=== PATIENT | male | born 1945 | race Caucasian/White ===

== ENCOUNTER → 2019-03-15 | Outpatient (CLI) | payer BC ==
[~2019-03-15] MED LIST: ASPIRIN325 PO; ATORVASTATIN CA40 MG PO; AZOR 5-40 MG T1 EACH PO; BENICAR20 MG PO; BYSTOLIC 5 MG5 M1 PO; DILTIAZEM 24HR240 MG PO; PERCOCET
== END ==
LOC: SJCVC 10:21 → CAT 10:21
DX: Z13.6 Encounter for screening for cardiovascular disorders (principal); I25.10 Atherosclerotic heart disease of native coronary artery without angina pectoris; E78.00 Pure hypercholesterolemia, unspecified

== ENCOUNTER → 2020-07-10 | Outpatient (CLI) | payer OTHER | LOC: SJCVC 14:21 | PROVIDERS: ATTEND Internal Medicine Cardiovascular Disease | DX: I25.10 Atherosclerotic heart disease of native coronary artery without angina pectoris (principal); I10 Essential (primary) hypertension; I77.9 Disorder of arteries and arterioles, unspecified; E78.00 Pure hypercholesterolemia, unspecified; M19.90 Unspecified osteoarthritis, unspecified site; E78.5 Hyperlipidemia, unspecified; F17.210 Nicotine dependence, cigarettes, uncomplicated; Z79.82 Long term (current) use of aspirin; Z79.899 Other long term (current) drug therapy; Z82.49 Family history of ischemic heart disease and other diseases of the circulatory system ==

== ENCOUNTER → 2021-01-02 | Outpatient (CLI) | payer OTHER | END | disposition home or self-care (01) | LOC: RAD 10:02 | PROVIDERS: ATTEND Nurse Practitioner | DX: M25.852 Other specified joint disorders, left hip (principal); M25.552 Pain in left hip ==

== ENCOUNTER → 2021-02-27 | Outpatient (CLI) | payer OTHER | LOC: SJCVCIMAG 09:38 → SJCVC 09:38 | PROVIDERS: ATTEND Internal Medicine Cardiovascular Disease | DX: I34.0 Nonrheumatic mitral (valve) insufficiency (principal); I47.1 Supraventricular tachycardia; I10 Essential (primary) hypertension; E78.00 Pure hypercholesterolemia, unspecified; I77.9 Disorder of arteries and arterioles, unspecified; I25.119 Atherosclerotic heart disease of native coronary artery with unspecified angina pectoris; R06.02 Shortness of breath; R00.2 Palpitations; F17.210 Nicotine dependence, cigarettes, uncomplicated; Z72.89 Other problems related to lifestyle; Z79.82 Long term (current) use of aspirin; Z79.899 Other long term (current) drug therapy; Z82.49 Family history of ischemic heart disease and other diseases of the circulatory system ==

== ENCOUNTER → 2021-03-29 | Outpatient (CLI) | payer OTHER ==
[~2021-03-29] VITALS: Ht 177.8 cm; Wt 90.7 kg
[~2021-03-29] MED LIST changes: +AVAPRO300 MG PO; +ZETIA10 MG PO
--- NOTE | ~2021-03-29 | P ---
[facility] [place] [address] PROCEDURE REPORT Name: SHO HARDING Room #: 150-3 [facility]#: [id number] Admission: 03/29/21 Attend Phys: Madhu Thompson MD Discharge: Date of : 47 Report #: [id number] THIS REPORT FOR: cc: Seferino Arrieta MD, Neal A. MD Couchonnal, Luis F. MD ~ DATE OF SERVICE: 03/29/2021 SVT ABLATION PREOPERATIVE DIAGNOSIS: Supraventricular tachycardia. 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 PROCEDURES PERFORMED: 1. SVT ablation, CPT code 19780. 2. Program stimulation pacing after IV drug infusion, CPT code 35036. DESCRIPTION OF PROCEDURE: The patient was brought to the EP laboratory in fasting and sedated state, prepped and draped in a standard fashion. I obtained access to the right femoral vein x 3, placing an 8, 6 and 7-Upper Sorbian short sheath. Under fluoroscopy, 3 quadripolar catheters were placed at the HRA, His and RV position and a decapolar catheter placed in the coronary sinus for left atrial pacing and recording. At baseline, the patient was in sinus rhythm, sinus cycle length of 625 milliseconds, OK interval 270 milliseconds, QRS duration 76 milliseconds, QT interval 385 milliseconds, AH interval 150 milliseconds, HV interval 50 milliseconds. Atrial burst pacing was performed and SVT was induced pacing at 350 milliseconds. The tachycardia cycle length was 400 milliseconds with a septal VA time of 35 milliseconds and a ventricular entrainment demonstrated a VAHV response consistent with typical AV nela reentrant tachycardia. AV block was noted to be less than 350 milliseconds. AV nela ERP was noted to be at a less than 300 milliseconds at a [address] cycle length. Next, ventricular pacing was performed. VA block was noted at 310 milliseconds. Ventricular ERP was noted at 240 milliseconds at a [address] cycle length. 3D MAPPING AND ABLATION: The patient was prepped for SVT ablation. I used a 4 mm ablation catheter via an SR0 sheath and I created a 3D geometry of the right atrium. A total of 4 ablation lesions were performed with good junctional responses and no heart block. POST-ABLATION FINDINGS: The patient underwent repeat post-ablation EP study. AV block was noted at 380 milliseconds. Atrial ERP was noted at 210 milliseconds at a [address] cycle length and AV block was noted at 270 milliseconds. Isoproterenol infusion was started at 2 mcg per minute. Atrial ERP was noted at 210 milliseconds at [address] [facility] [address] [place] [address] PROCEDURE REPORT Name: SHO HARDING Room #: 150-3 [facility]#: [id number] Admission: 03/29/21 Attend Phys: Madhu Thompson MD Discharge: Date of : 47 Report #: [id number] cycle length and AV block was noted at 250 milliseconds. I tested for approximately 20-30 minutes on Isuprel and could no longer induce any arrhythmias. Post-ablation, the patient was in sinus rhythm, sinus cycle length of 660 milliseconds, OK interval 209 milliseconds, QRS duration 73 milliseconds, QT interval 377 milliseconds. As such, all catheters and sheaths were pulled. Hemostasis obtained and the patient awoke neurologically and hemodynamically intact. No complications and no significant bleeding. CONCLUSION: 1. Successful ablation of typical AV nela reentrant tachycardia. 2. No other inducible arrhythmias on or off isoproterenol infusion. By: [id number] Madhu Thompson MD /nt
[2021-03-29 10:54] LABS: HEMOGLOBIN 11.3 gm/dL (14.0-18.0); MCH 29.8 pg (26.0-34.0); MCHC 33.4 g/dL (28.0-37.0); MCV 89.5 fL (80.0-100.0); PLATELET COUNT 85 thou/uL (150-400); RDW 16.6 % (10.5-14.5); WBC 2.3 thou/uL (4.0-11.0)
[2021-03-29 11:03] LABS: CALCIUM 9.5 mg/dL (8.5-10.1); CREATININE 2.1 mg/dL (0.7-1.3); POTASSIUM 4.3 mmol/L (3.5-5.1)
[2021-03-29 11:04] VITALS: BP 113/74
[2021-03-29 11:06] LABS: APTT 26.5 Seconds (24.5-32.8); INR 0.95; PROTIME 10.4 Seconds (10.5-12.1)
[2021-03-29 11:15] LABS: ALBUMIN 3.6 g/dL (3.4-5.0); TOTAL BILIRUBIN 0.8 mg/dL (0.2-1.0); TOTAL PROTEIN 7.5 g/dL (6.4-8.2)
[2021-03-29 11:33] LABS: ABSOLUTE NEUTROPHILS 1.4 thou/uL (1.4-8.2); ANISOCYTOSIS 1+; POLYCHROMASIA 1+
== END | disposition home or self-care (01) ==
LOC: CATH 03-20 07:28 → TBA 10:25 → CATH 10:25
PROVIDERS: ATTEND Internal Medicine Cardiovascular Disease
DX: I47.1 Supraventricular tachycardia (principal); I10 Essential (primary) hypertension; I25.10 Atherosclerotic heart disease of native coronary artery without angina pectoris; J44.9 Chronic obstructive pulmonary disease, unspecified; F17.210 Nicotine dependence, cigarettes, uncomplicated; Z98.890 Other specified postprocedural states; Z79.899 Other long term (current) drug therapy; Z79.82 Long term (current) use of aspirin; Z79.01 Long term (current) use of anticoagulants
CPT/HCPCS: 62110; 62900; 70005